=== PATIENT | male | born 2000 | race Caucasian/White ===

== ENCOUNTER 2022-07-12 18:27 | Emergency (ER) | payer SELFPAY ==
[2022-07-12 18:30] VITALS: BP 126/84; PULSE 84; RESP 16; TEMP 36.7; O2SAT 99; BMI 25.4
--- NOTE | 2022-07-12 18:36 | W.ED.DIZZY ---
HPI - Dizziness General: Chief Complaint: Dizziness Stated Complaint: Dizzy, chills, not feeling well Time Seen by Provider: 07/12/22 18:36 History of Present Illness: HPI Narrative: 22-year-old male patient comes in today with complaints of nasal drainage, sore throat, and malaise for the last 2 to 3 days. Patient felt some dizziness today. Patient appears unwell but not toxic. Patient denies any chronic medical problems. Patient takes no routine medicines. Associated symptoms: Reports malaise Review of Systems Const: Reports: fever(s) and malaise ENMT: Reports: nasal discharge Resp: Reports: non-productive cough Physical Exam Const: COMMON NORMALS: alert HENMT: COMMON NORMALS: normocephalic HEAD & SCALP: normocephalic NOSE: Nasal discharge present THROAT: posterior oropharynx abnormal cobblestoning and erythema Neck/C-Spine: COMMON NORMALS: full ROM and no meningeal signs Resp: COMMON NORMALS: normal respiratory effort and clear to auscultation bilaterally AUSCULTATION: clear to auscultation bilaterally Cardio: COMMON NORMALS: regular rate and regular rhythm RATE: regular rate RHYTHM: regular rhythm GI: COMMON NORMALS: non-tender : COMMON NORMALS: Yes no CVA tenderness BLADDER/KIDNEY EXAM: Yes no CVA tenderness Back/Pelvis: COMMON NORMALS: no CVA tenderness Extremity: COMMON NORMALS: no pedal edema Neuro: SENSORIUM/ORIENTATION: Yes alert MENINGEAL SIGNS: Yes no meningeal signs Skin: COMMON NORMALS: turgor normal GENERAL SKIN EXAM: turgor normal Course Vital Signs: Vital signs: Vital Signs Temperature 98.1 F 07/12/22 18:30 Pulse Rate 84 07/12/22 18:30 Respiratory Rate 16 07/12/22 18:30 Blood Pressure 126/84 07/12/22 18:30 Pulse Oximetry 99 07/12/22 18:30 Oxygen Delivery Me thod 07/12/22 18:30 MDM - Dizziness Medical Decision Making 22-year-old male patient comes in today for feelings of malaise, and dizziness. Patient reports illness for the last 2 to 3 days. On exam posterior pharynx erythematous with cobblestoning and clear drainage, lungs are clear to auscultation. Bilateral TMs are normal. Differential diagnosis includes but not limited to upper respiratory infection, influenza, COVID-19, strep pharyngitis. Strep, influenza, and COVID-19 test were negative. No signs of serious illness was noted. Believe patient probably has upper respiratory infection. Reviewed exam with patient with recommendations for treatment and follow-up. Patient reported understanding and agreed to plan. Lab Data Laboratory Results Influenza Type A Ag negative (Negative) 07/12/22 18:45 Influenza Type B Ag negative (Negative) 07/12/22 18:45 SARS-CoV-2 Ag (Rapid) negative (Negative) 07/12/22 18:45 Group A Strep Rapid Negative (Negative) 07/12/22 18:45 Discharge Plan Discharge Patient Disposition: Home Clinical Impression: URI (upper respiratory infection) Qualifiers: URI type: unspecified URI Qualified Code(s): J06.9 - Acute upper respiratory infection, unspecified Condition: Stable Discharge Orders: Discharge ED (Routine); Ordered 07/12/22 Ordered By: Elvis Treadwell Discharge Diet: Usual diet Discharge Activity: Increase activity as tolerated Patient Instructions: Upper Respiratory Infection (ED) Activity Restrictions/Additional Instructions: Home and rest. Drink plenty of fluids. Use acetaminophen and ibuprofen for pain and fever. Follow-up with primary care in 2 to 3 days for recheck. Return to ED for worsening symptoms such as increased shortness of breath, inability to hold fluids down, fever lasting longer than 7 days, or new concerns. Stand Alone Forms: Work/School Release Coding Level of Care Code ED Director Of Medical Education for Cintia [place]washok Exam Comprehensive
[2022-07-12 19:07] LABS: Influenza A by IFA negative (Negative); Influenza B by IFA negative (Negative)
[2022-07-12 19:08] LABS: Rapid Strep A Test Negative (Negative)
[2022-07-12 19:09] LABS: SARS Covid-2 Antigen negative (Negative)
== END 2022-07-12 19:35 | disposition home or self-care (01) ==
PROVIDERS: Emergency Provider Nurse Practitioner Family
DX: J06.9 Acute upper respiratory infection, unspecified (principal); Z20.822 Contact with and (suspected) exposure to COVID-19
CPT/HCPCS: 87081; 87426; 87804; 87880; 99283